=== PATIENT | female | born 1990 | race Caucasian/White ===

== ENCOUNTER 2021-07-24 09:30 | Inpatient (IN) | payer OTHER ==
[~2021-07-24] VITALS: Ht 160 cm; Wt 68.2 kg
[2021-07-24 10:43] LABS: BASOPHILS % (AUTO) 0.3 % (0.0-2.0); EOSINOPHILS % (AUTO) 0 % (1.0-6.0); HEMATOCRIT 40.1 % (36-46); HEMOGLOBIN 13.4 g/dL (12.0-16.0); LYMPHOCYTES # (AUTO) 1.1 K/uL (1.0-4.8); LYMPHOCYTES % (AUTO) 5.3 % (22.0-44.0); MEAN CORPUSCULAR HEMOGLOBIN 26.7 pg (26.0-34.0); MEAN CORPUSCULAR HGB CONC 33.6 G/dL (31.0-37.0); MEAN CORPUSCULAR VOLUME 80 fL (80-100); MONOCYTES # (AUTO) 0.9 K/uL (0.1-1.0); MONOCYTES % (AUTO) 4.3 % (2.0-9.0); NEUTROPHILS # (AUTO) 18.8 K/uL (1.8-7.7); PLATELET COUNT (AUTO) 523 K/uL (150-450); RED BLOOD CELL COUNT(AUTO) 5.04 MIL/uL (4.00-5.20); RED CELL DISTRIBUTION WIDTH 16.2 % (11.5-14.5)
[2021-07-24 10:44] LABS: NEUTROPHILS % (AUTO) 90.1 % (40.0-70.0)
[2021-07-24 10:45] LABS: COVID AG,FIA SOURCE NASOPHARYNGEAL
[2021-07-24 10:53] LABS: ANION GAP 15 mmol/L (8-16); CALCIUM, TOTAL 10.2 mg/dL (8.8-10.5); CARBON DIOXIDE 29 mmol/L (22-29); CHLORIDE 94 mmol/L (98-107); CREATININE 0.81 mg/dL (0.60-1.30); GLOMERULAR FILTR. RATE CALC > 60 mL/min (>60); GLUCOSE,RANDOM 107 mg/dL (70-110); POTASSIUM 3.6 mmol/L (3.5-5.1); SODIUM SERUM 138 mmol/L (136-145); UREA NITROGEN, BLOOD 17 mg/dL (7-18)
[2021-07-24 10:59] LABS: ALANINE AMINOTRANSFERASE 19 U/L (12-78); ALBUMIN 3.6 g/dL (3.4-5.0); ALKALINE PHOSPHATASE 115 U/L (46-116); ASPARTATE AMINOTRANSFERASE 13 U/L (15-37); BILIRUBIN,TOTAL 0.3 mg/dL (0.1-1.0); TOTAL PROTEIN, SERUM 9.6 g/dL (6.4-8.2)
[2021-07-24] MEDS ORDERED: KETOROLAC TROMETHAMINE 30 MG/ML VIAL IVP ONE (11:30)
[2021-07-24] MEDS ORDERED: ONDANSETRON HCL 4 MG/2 ML VIAL IVP ONE (11:30)
[2021-07-24] MEDS ORDERED: SODIUM CHLORIDE 0.9% 1,000 ML IV ONE (11:30)
[2021-07-24] MEDS ORDERED: CefTRIAXone 1 GM/DEXTROSE 50 ML IV ONE (12:00)
[2021-07-24] MEDS ORDERED: AZITHROMYCIN 500 MG/NS 250 ML IV ONE (12:00)
[2021-07-24] MEDS ORDERED: ONDANSETRON HCL 4 MG/2 ML VIAL IVP PRN (12:30)
[2021-07-24] MEDS ORDERED: ACETAMINOPHEN 325 MG TABLET PO PRN (12:30)
[2021-07-24] MEDS ORDERED: *CLINICAL-LEVOFLOXACIN IVPB DOSING CLINICAL ONE (15:15)
[2021-07-24] MEDS ORDERED: METOCLOPRAMIDE HCL 5 MG/ML 2 ML VIAL IVP PRN (15:15)
[2021-07-24] MEDS ORDERED: MAGNESIUM SULFATE 2 GM, MVI, ADULT NO.1 WITH VIT K 10 ML, THIAMINE 100 MG, FOLIC ACID 1... IV ONE ×5 (15:15)
[2021-07-24] MEDS ORDERED: ACETAMINOPHEN/CODEINE 300-15 MG TABLET PO PRN (15:15)
[2021-07-24] MEDS: LEVOFLOXACIN 750 MG/D5% WATER 150 ML IV SCH (16:16)
[2021-07-25] MEDS: LOPERAMIDE HCL 2 MG CAPSULE PO PRN ×2 (09:55→16:33)
[2021-07-25 11:51] VITALS: BP 132/72
[2021-07-25] MEDS: LORazepam 2 MG/ML VIAL IVP PRN ×2 (14:20→22:01)
[2021-07-25 16:00] VITALS: BP 132/80
[2021-07-25] MEDS ORDERED: SODIUM CHLORIDE 0.9% 250 ML IV ONE (16:31)
[2021-07-25] MEDS: LEVOFLOXACIN 750 MG/D5% WATER 150 ML IV SCH (16:33)
[2021-07-25 20:26] VITALS: BP 128/78
[2021-07-25 23:54] VITALS: BP 122/78
[2021-07-26] MEDS ORDERED: DiphenhydrAMINE HCL 50 MG/ML VIAL IVP ONE
[2021-07-26] MEDS ORDERED: HALOPERIDOL 5 MG TABLET PO ONE
[2021-07-26] MEDS ORDERED: LORazepam 2 MG/ML VIAL IVP ONE
[2021-07-26 05:15] VITALS: BP 136/85
[2021-07-26 06:29] LABS: BASOPHILS % (AUTO) 0.2 % (0.0-2.0); EOSINOPHILS % (AUTO) 0.1 % (1.0-6.0); HEMATOCRIT 39.5 % (36-46); HEMOGLOBIN 13.2 g/dL (12.0-16.0); LYMPHOCYTES # (AUTO) 2.3 K/uL (1.0-4.8); LYMPHOCYTES % (AUTO) 15.5 % (22.0-44.0); MEAN CORPUSCULAR HEMOGLOBIN 26.6 pg (26.0-34.0); MEAN CORPUSCULAR HGB CONC 33.3 G/dL (31.0-37.0); MEAN CORPUSCULAR VOLUME 80 fL (80-100); MONOCYTES # (AUTO) 0.8 K/uL (0.1-1.0); MONOCYTES % (AUTO) 5.6 % (2.0-9.0); NEUTROPHILS # (AUTO) 11.5 K/uL (1.8-7.7); NEUTROPHILS % (AUTO) 78.6 % (40.0-70.0); PLATELET COUNT (AUTO) 456 K/uL (150-450); RED BLOOD CELL COUNT(AUTO) 4.95 MIL/uL (4.00-5.20); RED CELL DISTRIBUTION WIDTH 16.2 % (11.5-14.5)
[2021-07-26 06:44] LABS: ANION GAP 10 mmol/L (8-16); CALCIUM, TOTAL 8.7 mg/dL (8.8-10.5); CARBON DIOXIDE 25 mmol/L (22-29); CHLORIDE 104 mmol/L (98-107); CREATININE 0.57 mg/dL (0.60-1.30); GLUCOSE,RANDOM 90 mg/dL (70-110); POTASSIUM 3.3 mmol/L (3.5-5.1); SODIUM SERUM 139 mmol/L (136-145); UREA NITROGEN, BLOOD 9 mg/dL (7-18)
[2021-07-26 07:06] LABS: GLOMERULAR FILTR. RATE CALC > 60 mL/min (>60)
[2021-07-26 07:45] VITALS: BP 117/70
[2021-07-26 11:52] VITALS: BP 120/62
[2021-07-26] MEDS ORDERED: POTASSIUM CHLORIDE 20 MEQ ER TABLET PO PRN (12:15)
[2021-07-26] MEDS ORDERED: POTASSIUM CHL 10 MEQ/WATER 50 ML IV PRN (12:15)
[2021-07-26] MEDS ORDERED: DiphenhydrAMINE HCL 50 MG/ML VIAL ONE (14:30)
[2021-07-26] MEDS ORDERED: HALOPERIDOL LACTATE 5 MG/ML VIAL ONE (14:30)
[2021-07-26] MEDS ORDERED: LORazepam 2 MG/ML VIAL IM ONE (15:00)
[2021-07-26] MEDS ORDERED: DiphenhydrAMINE HCL 50 MG/ML VIAL IM ONE (15:30)
[2021-07-26] MEDS ORDERED: HALOPERIDOL LACTATE 5 MG/ML VIAL IM ONE (15:30)
[2021-07-26] MEDS: LEVOFLOXACIN 750 MG/D5% WATER 150 ML IV SCH (16:03)
[2021-07-26 20:13] VITALS: BP 106/55
[2021-07-26] MEDS: TEMAZEPAM 15 MG CAPSULE PO SCH (20:47)
[2021-07-27] MEDS: LORazepam 2 MG/ML VIAL IVP PRN ×2 (04:29→17:19)
[2021-07-27 05:22] VITALS: BP 107/57
[2021-07-27 07:38] VITALS: BP 100/70
[2021-07-27 13:32] LABS: BASOPHILS % (AUTO) 0.4 % (0.0-2.0); EOSINOPHILS % (AUTO) 1.1 % (1.0-6.0); HEMATOCRIT 35.8 % (36-46); HEMOGLOBIN 11.7 g/dL (12.0-16.0); LYMPHOCYTES # (AUTO) 1.8 K/uL (1.0-4.8); LYMPHOCYTES % (AUTO) 18.5 % (22.0-44.0); MEAN CORPUSCULAR HEMOGLOBIN 26.6 pg (26.0-34.0); MEAN CORPUSCULAR HGB CONC 32.8 G/dL (31.0-37.0); MEAN CORPUSCULAR VOLUME 81 fL (80-100); MONOCYTES # (AUTO) 0.7 K/uL (0.1-1.0); MONOCYTES % (AUTO) 7.4 % (2.0-9.0); NEUTROPHILS # (AUTO) 7.1 K/uL (1.8-7.7); NEUTROPHILS % (AUTO) 72.6 % (40.0-70.0); PLATELET COUNT (AUTO) 352 K/uL (150-450); RED BLOOD CELL COUNT(AUTO) 4.42 MIL/uL (4.00-5.20); RED CELL DISTRIBUTION WIDTH 16.6 % (11.5-14.5)
[2021-07-27 13:43] LABS: ANION GAP 4 mmol/L (8-16); CALCIUM, TOTAL 8.5 mg/dL (8.8-10.5); CARBON DIOXIDE 25 mmol/L (22-29); CHLORIDE 103 mmol/L (98-107); CREATININE 0.69 mg/dL (0.60-1.30); GLOMERULAR FILTR. RATE CALC > 60 mL/min (>60); GLUCOSE,RANDOM 116 mg/dL (70-110); SODIUM SERUM 132 mmol/L (136-145); UREA NITROGEN, BLOOD 11 mg/dL (7-18)
[2021-07-27 14:37] LABS: APPEARANCE,URINE CLEAR (CLEAR); BILIRUBIN,URINE NEGATIVE (NEGATIVE); GLUCOSE, URINE (UA) NEGATIVE (NEGATIVE); KETONES,URINE NEGATIVE (NEGATIVE); LEUKOCYTE ESTERASE ,URINE SMALL (NEGATIVE); NITRATE,URINE NEGATIVE (NEGATIVE); OCCULT BLOOD,URINE NEGATIVE (NEGATIVE); PH,URINE 5.5 (5.0-8.0); PROTEIN,URINE NEGATIVE (NEGATIVE); UROBILINOGEN,URINE 0.2 mg/dL (<=1.0)
[2021-07-27 14:41] LABS: AMPHET/METH SCREEN,URINE NEGATIVE (NEGATIVE); BARBITURATE SCREEN, URINE NEGATIVE (NEGATIVE); BENZODIAZEPINES SCREEN,URINE NEGATIVE (NEGATIVE); CANNABINOID SCREEN,URINE NEGATIVE (NEGATIVE); COCAINE SCREEN,URINE NEGATIVE (NEGATIVE); METHADONE SCREEN, URINE NEGATIVE (NEGATIVE); OPIATE SCREEN,URINE POSITIVE (NEGATIVE)
[2021-07-27 14:43] LABS: PHENCYCLIDINE SCREEN,URINE NEGATIVE (NEGATIVE)
[2021-07-27 14:50] LABS: BACTERIA,URINE None Seen /HPF (None Seen); CALCIUM OXALATE CRYSTALS,UR Few /LPF (None Seen); RBC,URINE None Seen /HPF (0-2); SQUAMOUS EPITHELIAL CELL,UR Few /LPF (None Seen); WBC,URINE 0-2 /HPF (0-5)
[2021-07-27] MEDS: NICOTINE 14 MG/24 HOUR PATCH TD SCH (15:23)
[2021-07-27] MEDS: LEVOFLOXACIN 750 MG/D5% WATER 150 ML IV SCH (15:23)
[2021-07-27 19:08] VITALS: BP 121/77
[2021-07-27] MEDS: TEMAZEPAM 15 MG CAPSULE PO SCH (22:14)
[2021-07-28] MEDS: LORazepam 2 MG/ML VIAL IVP PRN ×3 (02:28→20:15)
[2021-07-28 04:45] VITALS: BP 116/61
[2021-07-28] MEDS: DICYCLOMINE HCL 10 MG CAPSULE PO PRN ×2 (04:57→22:48)
[2021-07-28 06:46] LABS: BASOPHILS % (AUTO) 0.2 % (0.0-2.0); HEMOGLOBIN 13.4 g/dL (12.0-16.0); LYMPHOCYTES # (AUTO) 2.8 K/uL (1.0-4.8); LYMPHOCYTES % (AUTO) 23.9 % (22.0-44.0); MEAN CORPUSCULAR HEMOGLOBIN 26.8 pg (26.0-34.0); MEAN CORPUSCULAR HGB CONC 33.5 G/dL (31.0-37.0); MEAN CORPUSCULAR VOLUME 80 fL (80-100); MONOCYTES # (AUTO) 0.7 K/uL (0.1-1.0); MONOCYTES % (AUTO) 5.9 % (2.0-9.0); NEUTROPHILS # (AUTO) 8.2 K/uL (1.8-7.7); PLATELET COUNT (AUTO) 424 K/uL (150-450); RED BLOOD CELL COUNT(AUTO) 5.02 MIL/uL (4.00-5.20); RED CELL DISTRIBUTION WIDTH 15.8 % (11.5-14.5)
[2021-07-28 07:05] LABS: ANION GAP 7 mmol/L (8-16); CALCIUM, TOTAL 9.1 mg/dL (8.8-10.5); CARBON DIOXIDE 26 mmol/L (22-29); CHLORIDE 98 mmol/L (98-107); CREATININE 0.72 mg/dL (0.60-1.30); GLOMERULAR FILTR. RATE CALC > 60 mL/min (>60); GLUCOSE,RANDOM 96 mg/dL (70-110); POTASSIUM 3.9 mmol/L (3.5-5.1); SODIUM SERUM 131 mmol/L (136-145); UREA NITROGEN, BLOOD 13 mg/dL (7-18)
[2021-07-28 08:06] VITALS: BP 112/59
[2021-07-28] MEDS: NICOTINE 14 MG/24 HOUR PATCH TD SCH (08:56)
[2021-07-28] MEDS ORDERED: IBUPROFEN 600 MG TABLET PO PRN (11:00)
[2021-07-28] MEDS ORDERED: CloNIDine HCL 0.1 MG TABLET PO PRN (11:00)
[2021-07-28] MEDS ORDERED: MAG HYDROX/AL HYDROX/SIMETH ES 30 ML SUSPENSION UDCUP PO PRN (11:00)
[2021-07-28 11:42] VITALS: BP 111/63
[2021-07-28] MEDS: CloNIDine HCL 0.1 MG TABLET PO SCH ×3 (11:44→22:48)
[2021-07-28] MEDS: BuPROPion HCL 100 MG SR TABLET PO SCH (14:18)
[2021-07-28] MEDS: HydrOXYzine PAMOATE 50 MG CAPSULE PO PRN (14:18)
[2021-07-28] MEDS: QUEtiapine FUMARATE 25 MG TABLET PO SCH ×2 (14:21→20:16)
[2021-07-28] MEDS: LEVOFLOXACIN 750 MG/D5% WATER 150 ML IV SCH (15:23)
[2021-07-28 15:49] VITALS: BP 106/65
[2021-07-28] MEDS: TEMAZEPAM 15 MG CAPSULE PO SCH (20:15)
[2021-07-28 20:46] VITALS: BP 108/69
[2021-07-28] MEDS ORDERED: LORazepam 2 MG/ML VIAL IVP ONE (23:30)
[2021-07-28 23:40] VITALS: BP 113/65
[2021-07-29 00:08] VITALS: BP 133/66
[2021-07-29] MEDS: CloNIDine HCL 0.1 MG TABLET PO SCH ×4 (05:29→21:05)
[2021-07-29 05:57] VITALS: BP 111/62
[2021-07-29 08:22] VITALS: BP 113/63
[2021-07-29] MEDS: BuPROPion HCL 100 MG SR TABLET PO SCH (09:44)
[2021-07-29] MEDS: NICOTINE 14 MG/24 HOUR PATCH TD SCH (09:44)
[2021-07-29] MEDS: QUEtiapine FUMARATE 25 MG TABLET PO SCH ×2 (09:44→20:27)
[2021-07-29] MEDS: LORazepam 2 MG/ML VIAL IVP PRN ×2 (09:46→20:34)
[2021-07-29 12:07] VITALS: BP 111/66
[2021-07-29] MEDS: HydrOXYzine PAMOATE 50 MG CAPSULE PO PRN (12:56)
[2021-07-29] MEDS ORDERED: LORazepam 2 MG/ML VIAL IVP ONE (14:15)
[2021-07-29] MEDS: LEVOFLOXACIN 750 MG/D5% WATER 150 ML IV SCH (15:35)
[2021-07-29 16:31] VITALS: BP 113/67
[2021-07-29 20:26] VITALS: BP 101/58
[2021-07-29] MEDS: TEMAZEPAM 15 MG CAPSULE PO SCH (20:27)
[2021-07-29] MEDS: LOPERAMIDE HCL 2 MG CAPSULE PO PRN (20:28)
[2021-07-30 05:08] VITALS: BP 104/67
[2021-07-30] MEDS: CloNIDine HCL 0.1 MG TABLET PO SCH ×4 (05:17→22:00)
[2021-07-30] MEDS: NICOTINE 14 MG/24 HOUR PATCH TD SCH (08:19)
[2021-07-30] MEDS: BuPROPion HCL 100 MG SR TABLET PO SCH (08:19)
[2021-07-30] MEDS: QUEtiapine FUMARATE 25 MG TABLET PO SCH ×2 (09:25→20:31)
[2021-07-30 09:46] VITALS: BP 90/50
[2021-07-30] MEDS ORDERED: ChlorproMAZINE HCL 50 MG/2 ML AMP ONE (12:01)
[2021-07-30] MEDS ORDERED: ChlorproMAZINE HCL 50 MG/2 ML AMP IM ONE (12:15)
[2021-07-30] MEDS ORDERED: LORazepam 2 MG/ML VIAL IM ONE (12:15)
[2021-07-30 12:45] VITALS: BP 101/58
[2021-07-30] MEDS ORDERED: SODIUM CHLORIDE 0.9% 500 ML IV ONE (14:55)
[2021-07-30] MEDS: LEVOFLOXACIN 750 MG/D5% WATER 150 ML IV SCH (15:33)
[2021-07-30 20:00] VITALS: BP 96/54
[2021-07-30] MEDS: TEMAZEPAM 15 MG CAPSULE PO SCH (20:31)
[2021-07-30] MEDS: LORazepam 2 MG/ML VIAL IVP PRN (21:16)
[2021-07-31] MEDS ORDERED: ZOLPIDEM TARTRATE 5 MG TABLET PO ONE (00:15)
[2021-07-31 04:55] VITALS: BP 105/54
[2021-07-31] MEDS: CloNIDine HCL 0.1 MG TABLET PO SCH ×2 (05:32→12:00)
[2021-07-31 07:45] VITALS: BP 114/60
[2021-07-31] MEDS: QUEtiapine FUMARATE 25 MG TABLET PO SCH (08:27)
[2021-07-31] MEDS: LORazepam 2 MG/ML VIAL IVP PRN (08:27)
[2021-07-31] MEDS: BuPROPion HCL 100 MG SR TABLET PO SCH (08:27)
[2021-07-31] MEDS: NICOTINE 14 MG/24 HOUR PATCH TD SCH (08:27)
[2021-07-31] MEDS ORDERED: HydrOXYzine PAMOATE 50 MG CAPSULE PO PRN (10:30)
[2021-08-01] MEDS ORDERED: LEVOFLOXACIN 750 MG TABLET PO SCH (09:00)
== END 2021-07-31 16:35 | disposition left against medical advice (07) | DRG 91 ==
LOC: EMS 09:33 → 6S 07-25 06:40
PROVIDERS: ADMIT Internal Medicine; ATTEND Internal Medicine
DX: G92.9 Unspecified toxic encephalopathy (principal); J18.9 Pneumonia, unspecified organism; F11.23 Opioid dependence with withdrawal; F23 Brief psychotic disorder; Z20.822 Contact with and (suspected) exposure to COVID-19; Z53.29 Procedure and treatment not carried out because of patient's decision for other reasons; Z88.2 Allergy status to sulfonamides
CPT/HCPCS: 71045; 74176; 80048; 80053; 81001; 84703; 85025; 87040; 99285; J0456; J0696; J1200; J1630; J1885; J1956; J2060; J2405; J2765; J3230; J3411; J3475; J3490; J7030; J7040; J7050; 36415-L1; 36415-TC; U0003